=== PATIENT | male | born 1995 | race Caucasian/White ===

== ENCOUNTER 2019-02-01 09:55 | Emergency (ER) | payer OTHER, SELFPAY ==
[2019-02-01 09:56] VITALS: BP 141/74; PULSE 104; RESP 17; TEMP 36.6; O2SAT 99; BMI 21.5
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
[2019-02-01] MEDS: Ondansetron 4 MG/2 ML Vial IV (10:27)
[2019-02-01] MEDS: Morphine 4 MG/ML Syringe IV (10:27)
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
[2019-02-01 10:49] LABS: Absolute Lymphocyte Count 1.62 X10^3/ul (0.83-4.51); Basophil# 0.01 X10^3/uL; Basophil% 0.2 % (0-1); Eosinophil# 0.11 X10^3/uL; Eosinophils% 2.1 % (0-5); Hematocrit 41.7 % (40-54); Hemoglobin 14.2 g/dl (13.0-16.5); Lymphocyte # 1.62 X10^3/ul (4.0); Lymphocyte % 30.7 % (19-41); Mean Corp Hgb Conc 34.1 g/gl (32-36); Mean Corpuscular Hgb 30.5 pg (27.0-32.0); Mean Corpuscular Volume 89.5 fL (80-94); Mean Platelet Vol. 10.6 fl (6.2-12.0); Monocyte# 0.55 X10^3/uL; Monocyte% 10.4 % (0-10); Neutrophil # 2.98 X10^3/uL (2.7-7.7); Neutrophil % 56.6 % (47-70); Platelet Count 160 K/mm3 (150-450); RBC Distribution Width CV 13.4 % (11.6-14.6); RBC Distribution Width SD 43.5 fl (35.1-43.9); Red Blood Count 4.66 M/mm3 (4.6-6.2); White Blood Count 5.3 K/mm3 (4.4-11.0)
[2019-02-01 10:50] LABS: POSITIVE COUNT NO; POSITIVE DIFFERENTIAL NO; POSITIVE MORPHOLOGY NO
[2019-02-01 11:15] LABS: ALB/GLOB Ratio 1.2 RATIO (0.9-2.4); AST(SGOT) 23 U/L (15-37); Alanine Aminotransfer ALT/SGPT 23 U/L (16-61); Alkaline Phosphatase 86 U/L (45-117); Anion Gap 5 (5-15); BUN 21 mg/dL (7-18); BUN/Creat Ratio 19.6 RATIO (10-20); Calcium,Total 9.2 mg/dL (8.5-10.1); Chloride 107 mmol/L (98-107); Creatinine, Serum 1.07 mg/dL (0.70-1.30); EST Glomerular Filtration Rate 92 mL/min (>60); Est Glom Filt Rate - Afr Amer 111 mL/min (>60); Estimated Creatinine Clearance 104.21 ml/min; Globulin 3.2 g/dL (2.2-4.2); Glucose 85 mg/dL (74-106); Protein, Total 7.2 g/dL (6.4-8.2); Sodium Level 140 mmol/L (136-145)
[2019-02-01] MEDS: Morphine 4 MG/ML Syringe IM (11:19)
[2019-02-01 11:53] VITALS: BP 123/88; PULSE 69; RESP 17; RESP 20
== END 2019-02-01 11:54 | disposition home or self-care (01) ==
PROVIDERS: Emergency Provider Emergency Medicine
DX: S06.0X9A Concussion with loss of consciousness of unspecified duration, initial encounter (principal); S16.1XXA Strain of muscle, fascia and tendon at neck level, initial encounter; S29.012A Strain of muscle and tendon of back wall of thorax, initial encounter; S39.012A Strain of muscle, fascia and tendon of lower back, initial encounter; S20.212A Contusion of left front wall of thorax, initial encounter; S20.211A Contusion of right front wall of thorax, initial encounter; V86.56XA Driver of dirt bike or motor/cross bike injured in nontraffic accident, initial encounter; Y93.55 Activity, bike riding; Y92.89 Other specified places as the place of occurrence of the external cause; Y99.8 Other external cause status
CPT/HCPCS: 70450; 71260; 72125; 74177; 80053; 85025; 96372; 96374; 96375; 99283; Q9967; A4216; J2405

== ENCOUNTER 2020-02-19 16:09 | Emergency (ER) | payer OTHER, SELFPAY ==
[2020-02-19 16:11] VITALS: BP 122/76; PULSE 114; RESP 18; TEMP 36.7; O2SAT 97; BMI 20.7
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
[2020-02-19] MEDS: Ibuprofen 400 MG Tablet 800 MG PO (17:32)
[2020-02-19 17:33] VITALS: RESP 16
== END 2020-02-19 17:47 | disposition home or self-care (01) ==
PROVIDERS: Emergency Provider Emergency Medicine
DX: S93.402A Sprain of unspecified ligament of left ankle, initial encounter (principal); X50.1XXA Overexertion from prolonged static or awkward postures, initial encounter; Y93.55 Activity, bike riding; Y92.89 Other specified places as the place of occurrence of the external cause; Y99.8 Other external cause status
CPT/HCPCS: 73590; 73610; 73630; 99284

== ENCOUNTER 2025-01-18 08:39 | Emergency (ER) | payer MEDICAID, SELFPAY ==
[2025-01-18 08:40] VITALS: BP 135/96; PULSE 100; RESP 16; TEMP 36.4; O2SAT 99; BMI 21.9
[2025-01-18 08:51] VITALS: BP 135/96; PULSE 100; RESP 16; TEMP 36.4; O2SAT 99
[2025-01-18] MEDS: dexAMETHasone 10 MG/ML Vial IV (09:10)
[2025-01-18] MEDS: 0.9% Normal Saline (1000mL) 1,000 ML 1000 ML IV (09:10)
[2025-01-18 09:21] LABS: Absolute Lymphocyte Count 1.26 X10^3/uL (0.83-4.51); Absolute Neutrophil Count 3.7 X10^3/uL (2.0-7.7); Basophil# 0.02 X10^3/uL; Basophil% 0.3 % (0-1); Eosinophil# 0.02 X10^3/uL; Eosinophils% 0.3 % (0-5); Hematocrit 46.5 % (40-54); Hemoglobin 15.9 g/dL (13.0-16.5); Lymphocyte # 1.26 X10^3/ul (0.83-4.51); Lymphocyte % 21.6 % (19-41); Mean Corp Hgb Conc 34.2 g/dL (32-36); Mean Corpuscular Volume 87.7 fL (80-94); Mean Platelet Vol. 10.3 fl (6.2-12.0); Monocyte# 0.81 X10^3/uL; Monocyte% 13.9 % (0-10); NRBC Flagged by Analyzer 0 % (0-5); Neutrophil % 63.6 % (47-70); Platelet Count 152 K/mm3 (150-450); RBC Distribution Width CV 12.5 % (11.6-14.6); RBC Distribution Width SD 39.8 fl (35.1-43.9); White Blood Count 5.8 K/mm3 (4.4-11.0)
--- NOTE | 2025-01-18 09:24 | EX.ED.DYSGE1 ---
HPI History of Present Illness Chief Complaint: General Illness Detail of Chief Complaint: Sore throat, dysphonia, difficulty swallowing due to pain Informant: patient Onset/Context/Timing Onset: Weeks (2 weeks ago) Context: Sudden Onset Timing: Continuous Quality: Throat pain Location: Pharynx Current Severity: Mild Maximum Severity: Severe Worsened by: Swallowing liquids or solids Relieved by: Nothing Associated Symptoms Associated Symptoms: No documented fever or chills. No upper respiratory tract infectious sympt Narrative Narrative: Patient is a 29-year-old male. He has no stomach a past medical history. Has no allergies. Is on no medication. He does admit to smoking and drinking. He denies fever or chills. He denies headache, rhinorrhea, congestion postnasal drainage. Does complain of sore throat. He also has complaint of neck pain with swollen lymph nodes. He was seen at [facility] urgent care and had a negative rapid strep and negative mono. Based on timing of mono this may be a false negative. He denies cough or shortness of breath. He denies nausea, vomiting or diarrhea. He denies rash. Denies myalgias or arthralgias. He has had no ill contacts. Prior similar symptoms: Yes Recent Illness/Hospitalization: No PFSH PFSH Home Medications ?Medication ?Instructions ?Recorded ?Last Taken ?Type dexamethasone 4 mg tablet 4 mg PO DAILY #3 tabs 01/18/25 Unknown Rx Allergy/AdvReac Type Severity Reaction Status Date / Time No Known Allergies Allergy Verified 01/18/25 08:42 Surgical History H/O shoulder surgery Social History Smoking Status: Current every day smoker tobacco type: cigarettes and e-cigarettes ROS ROS ED Constitutional Constitutional ED: Reports weight loss and other Details: Patient states she has not been eating well and reason for weight loss. ; Denies chills, fever(s), subjective or sweats Eyes Eyes: Denies blurry vision or change in vision ENT ENT ED: Reports sore throat; Denies ear pain or rhinorrhea Cardiovascular Cardiovascular: Denies chest pain or palpitations Respiratory/Chest Respiratory/Chest: Denies cough, dyspnea or dyspnea on exertion Gastrointestinal Gastrointestinal: Reports abdominal pain; Denies nausea or vomiting Musculoskeletal Musculoskeletal: Reports neck pain; Denies arthralgias or myalgias Integumentary Denies rash Neurologic Neurologic: Denies headache(s) or paresthesias Hematologic/Lymphatic Hematologic/Lymphatic: Reports systems reviewed and no addt'l complaints, except as documented EXAM Physical Exam Const Vital Signs: 01/18/25 08:40 01/18/25 08:51 01/18/25 08:57 Temperature 97.5 F L 97.5 F L Temperature Source Oral Oral Pulse Rate 100 100 Respiratory Rate 16 16 Respiratory Effort Normal Non-Labored Respiratory Pattern Normal Blood Pressure 135/96 H 135/96 H Blood Pressure Mean 109 109 Pulse Ox 99 99 Oxygen Delivery Method Room Air Room Air 01/18/25 09:42 01/18/25 10:53 Temperature 98.1 F 98.0 F Temperature Source Oral Oral Pulse Rate 79 82 Respiratory Rate 16 14 Respiratory Effort Respiratory Pattern Blood Pressure 124/74 H 125/68 H Blood Pressure Mean 90 87 Pulse Ox 100 99 Oxygen Delivery Method Room Air Room Air Positive well nourished and well developed Constitutional Narrative: Patient appears ill. He does not. Pain. General Appearance ED: well developed and pallor; Negative for cyanotic or diaphoretic HEENT HEENT Narrative: Uvula midline. No deviation tongue or protrusion. Patient has enlarged tonsils with exudate. There is dysphonia. There is no drooling. There is no trismus. Nares patent with no discharge. Ears are normal. Eyes PERRL and EOMs intact bilaterally General Eye ED: Negative for pale conjunctiva or scleral icterus Neck No no lymphadenopathy, supple and no JVD Neck Narrative: Patient has bilateral anterior cervical lymphadenopathy. Chest Wall inspection of chest normal and palpation of chest normal Resp normal respiratory effort and clear to auscultation bilaterally Cardio regular rate, regular rhythm, S1 normal heart sound, S2 normal heart sound and no murmurs GI normal to inspection, nondistended, normoactive bowel sounds, non-tender, non-distended and no masses; Negative for hepatosplenomegaly Extremity normal to inspection General Extremety ED: Negative for edema General Extremity: Negative for edema Neuro oriented x3 and CN's II-XII intact bilaterally Sensorium / Orientation: alert Psych mental status grossly normal Skin no rashes or lesions noted, no wounds and skin turgor normal General Skin Exam: pallor; Negative for elasticity normal or jaundice MDM MDM MDM Narrative Medical decision making narrative: Differential diagnosis would include nonstrep a tonsillitis, mono, viral exudative tonsillitis. Clinically patient appears dehydrated. BMP was obtained assess BUN/creatinine as well as CO2 anion gap. White count was obtained to assess for atypical lymphocytes which would indicate mononucleosis. He did receive 10 mg of Decadron IV push and IV fluids as well. History & Record Review Additional record(s) reviewed:: Prior outpatient record (Records from outside facility were reviewed. He did have a negative strep and mono spot.) and Prior ED visit (Last ER visit was February 2020 for ankle sprain.) Lab Data Attestation: I reviewed the patient's lab results. Lab results narrative: CBC is unremarkable. There is no atypical lymphocytes. Labs: Laboratory Results - last 24 hr 01/18/25 09:06 WBC 5.8 RBC 5.30 Hgb 15.9 Hct 46.5 MCV 87.7 MCH 30.0 MCHC 34.2 RDW Std Deviation 39.8 RDW Coeff of Sixto 12.5 Plt Count 152 MPV 10.3 Immature Gran % (Auto) 0.300 Neut % (Auto) 63.6 Lymph % (Auto) 21.6 Bracken % (Auto) 13.9 H Eos % (Auto) 0.3 Baso % (Auto) 0.3 Absolute Neuts (auto) 3.7 Absolute Lymphs (auto) 1.26 Nucleated RBC % 0 Sodium 139 Potassium 4.1 Chloride 101 Carbon Dioxide 26.4 Anion Gap 12 BUN 16 Creatinine 1.06 Estim Creat Clear Calc 104.71 Est GFR (MDRD) Non-Af 98 BUN/Creatinine Ratio 15.4 Glucose 93 Calcium 9.7 Treatment and Re-Evaluation :: Patient was reassessed and states his throat still hurts. He was given Cepastat lozenges. He was reassessed again at 1155. He states he feels the swelling is gone down. His throat is numb. He will be discharged home with a prescription for Decadron. He apparently has an appointment later that this afternoon to be seen by the ENT. Recommended that he contact them and inform them that he was seen here in the emergency department and will was done. Discharge Plan Triage Chief Complaint: General Illness ED Provider: Davie Nguyen Dx/Rx/DC Orders Clinical Impression: Exudative tonsillitis, Acute dehydration, Anterior cervical adenopathy Instructions: ED Pharyngitis, Viral Prescriptions: New dexamethasone 4 mg tablet 4 mg PO DAILY Qty: 3 0RF Primary Care Provider: Care Physician,No Primary Referrals: Care Physician,No Primary [Primary Care Provider] - Activity Restrictions/Additional Instructions: 1. Either use Chloraseptic spray or Cepastat lozenges for throat discomfort 2. Take Decadron until gone 3. Return if you are unable to swallow or have drooling Print Language: [place] Disposition Disposition: Home, Self Care
[2025-01-18 09:42] VITALS: BP 124/74; PULSE 79; RESP 16; TEMP 36.7; O2SAT 100
[2025-01-18 10:06] LABS: Anion Gap 12 (5-15); BUN 16 mg/dL (4-19); BUN/Creat Ratio 15.4 RATIO (10-20); Calcium,Total 9.7 mg/dL (7.6-11.0); Carbon Dioxide 26.4 mmol/L (21.0-32.0); Chloride 101 mmol/L (98-108); Creatinine, Serum 1.06 mg/dL (0.70-1.20); EST Glomerular Filtration Rate 98 (>60); Estimated Creatinine Clearance 104.71 ml/min (50-250); Glucose 93 mg/dL (70-99); Potassium 4.1 mmol/L (3.3-5.1); Sodium Level 139 mmol/L (133-145)
[2025-01-18] MEDS: BENZOCAINE/MENTHOL 1 LOZENGE MUCOUS MEM (10:50)
[2025-01-18 10:53] VITALS: BP 125/68; PULSE 82; RESP 14; TEMP 36.7; O2SAT 99
[2025-01-18 12:10] VITALS: BP 116/73; PULSE 82; RESP 16; TEMP 36.7; O2SAT 99
== END 2025-01-18 12:11 | disposition home or self-care (01) ==
PROVIDERS: Emergency Provider Emergency Medicine; Visit Provider Emergency Medicine
DX: J03.90 Acute tonsillitis, unspecified (principal); E86.0 Dehydration; F17.210 Nicotine dependence, cigarettes, uncomplicated; R59.0 Localized enlarged lymph nodes; R49.0 Dysphonia
CPT/HCPCS: 80048; 85025; 96360; 96361; 99283; A4216